=== PATIENT | male | born 1955 | race Caucasian/White ===

== ENCOUNTER 2021-12-27 08:28 | Outpatient (CLI) | payer MEDICARE, MEDICAID ==
[2021-12-27 10:08] LABS: ALANINE AMINOTRANSFERASE 36 U/L (12-78); ALBUMIN 3.6 G/DL (3.4-5.0); ALKALINE PHOSPHATASE 62 IU/L (46-116); ANION GAP 9 (8-16); ASPARTATE AMINO TRANSFERASE 16 U/L (10-37); BILIRUBIN,TOTAL 0.6 MG/DL (0.1-1.0); CHLORIDE 104 MMOL/L (99-107); CHOL/HDL RATIO 3.6 (0.00-4.99); CHOLESTEROL 175 MG/DL (0-200); CREATININE 0.98 MG/DL (0.60-1.10); GLUCOSE 155 MG/DL (70-104); HDL CHOLESTEROL 49 MG/DL (35-60); LDL CHOLESTEROL 83 MG/DL (50-100); POTASSIUM 4.4 MMOL/L (3.5-5.1); SODIUM 139 MMOL/L (135-145); TOTAL PROTEIN 7.2 G/DL (6.4-8.2); TRIGLYCERIDES 208 MG/DL (20-135); eGFR 76 ML/MIN
[2021-12-27 10:09] LABS: BLOOD UREA NITROGEN 20 MG/DL (7-18); BUN/CREATININE RATIO 20.4 (5.4-32.0)
== END 2021-12-27 23:59 | disposition home or self-care (01) ==
LOC: LAB 08:28
PROVIDERS: ATTEND Family Medicine
DX: I35.0 Nonrheumatic aortic (valve) stenosis (principal); E78.5 Hyperlipidemia, unspecified; I10 Essential (primary) hypertension; E11.9 Type 2 diabetes mellitus without complications; F20.9 Schizophrenia, unspecified; R60.0 Localized edema; R07.9 Chest pain, unspecified
CPT/HCPCS: 36415; 80053; 80061; 83880

== ENCOUNTER 2022-01-01 10:03 | Day surgery (SDC) | payer MEDICARE, MEDICAID ==
[2021-12-27 09:59] LABS: APTT 28 SECONDS (22-32)
[2021-12-27 10:29] LABS: BASOPHILS % (AUTO) 0.7 % (0-1); EOSINOPHILS # (AUTO) 0.2 X10'3 (0-0.9); EOSINOPHILS % (AUTO) 2.4 % (0-6); HEMATOCRIT 40.9 % (42.0-52.0); HEMOGLOBIN 14.2 g/dl (14.0-17.9); LYMPHOCYTES # (AUTO) 2.5 X10'3 (1.1-4.8); LYMPHOCYTES % (AUTO) 36.4 % (21-51); MEAN CORPUSCULAR HEMOGLOBIN 30.4 PG (27.0-31.0); MEAN CORPUSCULAR HGB CONC 34.8 g/dL (33.0-36.5); MEAN CORPUSCULAR VOLUME 87.3 FL (78-98); MEAN PLATELET VOLUME 7.7 FL (7.4-10.4); MONOCYTES # (AUTO) 0.4 X10'3 (0-0.9); MONOCYTES % (AUTO) 6.2 % (2-12); NEUTROPHILS # (AUTO) 3.7 X10'3 (1.8-7.7); NEUTROPHILS % (AUTO) 54.3 % (42-75); PLATELET COUNT 175 X10'3 (140-440); RED BLOOD COUNT 4.68 X10'6 (4.70-6.10); RED CELL DISTRIBUTION WIDTH 13.7 % (11.5-14.5); WHITE BLOOD COUNT 6.8 X10'3 (4.5-11.0)
[2022-01-01] VITALS (9 sets, daily range): BP systolic 126–148; BP diastolic 38–80
[~2022-01-01] VITALS: Ht 180.3 cm; Wt 87.5 kg
[2022-01-01] MEDS ORDERED: diphenhydrAMINE 25mg capsule PO PRN (10:20)
[2022-01-01] MEDS ORDERED: LORazepam 0.5 MG tablet PO PRN (10:20)
[2022-01-01] MEDS ORDERED: normal saline 1,000 ML IV SCH (10:20)
[2022-01-01] MEDS ORDERED: LIDOcaine/PRILOcaine 5gm cream TP ONE (10:45)
[2022-01-01 11:43] LABS: ALBUMIN 3.6 G/DL (3.4-5.0); ANION GAP 8 (8-16); BLOOD UREA NITROGEN 17 MG/DL (7-18); BUN/CREATININE RATIO 16.8 (5.4-32.0); CALCIUM 8.7 MG/DL (8.5-10.1); CHLORIDE 105 MMOL/L (99-107); CREATININE 1.01 MG/DL (0.60-1.10); GLUCOSE 195 MG/DL (70-104); POTASSIUM 4.2 MMOL/L (3.5-5.1); SODIUM 141 MMOL/L (135-145); eGFR 73 ML/MIN
[2022-01-01] MEDS ORDERED: nitroGLYCERIN-Tridil 50MG/D5W 250 ML IV ONE (11:50)
[2022-01-01] MEDS ORDERED: HEPARIN 25000 UNIT/250 ML IV ONE (11:50)
[2022-01-01] MEDS ORDERED: verapamil 2.5 mg/ml inj IV ONE (11:50)
[2022-01-01] MEDS ORDERED: heparin 1,000unit/ml 10ml vial 10 ML ONE (11:51)
[2022-01-01] MEDS ORDERED: iohexol 350MG/ML 100ml bottle IV ONE (11:51)
[2022-01-01] MEDS ORDERED: LIDOcaine 1% (10mg/ml) 2ml vial ONE (11:51)
[2022-01-01] MEDS ORDERED: fentaNYL/PF 50MCG/1 ML 2ML syringe ONE (11:51)
[2022-01-01] MEDS ORDERED: midazolam 1 mg/ML 2ml injection ONE (11:51)
[2022-01-01] MEDS ORDERED: LISI20TA28 PO (12:42)
[2022-01-01] MEDS ORDERED: CALC-1074 PO (12:42)
[2022-01-01] MEDS ORDERED: ESCI20TA39 PO (12:42)
[2022-01-01] MEDS ORDERED: INSU100I31 SUBCUT (12:42)
[2022-01-01] MEDS ORDERED: OMEP20CA16 PO (12:42)
[2022-01-01] MEDS ORDERED: TADA20TA70 PO (12:42)
[2022-01-01] MEDS ORDERED: ARIP20TA21 PO (12:42)
[2022-01-01] MEDS ORDERED: METF-438 PO (12:42)
[2022-01-01] MEDS ORDERED: ASPI-611 PO (12:42)
[2022-01-01] MEDS ORDERED: SIMV-45 PO (12:42)
[2022-01-01] MEDS ORDERED: LORA-268 PO (12:42)
[2022-01-01] MEDS ORDERED: DOCU250C18 PO (12:42)
[2022-01-01] MEDS ORDERED: GABA600T13 PO (12:42)
[2022-01-01 14:10] LABS: ISTAT HGB ART 12.6 g/dl (14.0-18.0); ISTAT Hct ART 37 %PCV (42-52); ISTAT O2 SATURATION ARTERIAL 90 % (95-98); ISTAT SOURCE ART
[2022-01-01] MEDS ORDERED: HYDROcodone/acetaminophen 10/325mg tab PO PRN (14:40)
[2022-01-01] MEDS ORDERED: HYDROcodone/acetaminophen 5mg/325mg tablet PO PRN (14:40)
[2022-01-01 16:04] LABS: ISTAT Hct MIX 39 %PCV (42-52); ISTAT O2 SATURATION MIX VENOUS 63 % (60-80); ISTAT SOURCE VEN
== END 2022-01-01 16:45 | disposition home or self-care (01) ==
LOC: SSTAY O 10:03
PROVIDERS: ATTEND Student in an Organized Health Care Education/Training Program
DX: I35.0 Nonrheumatic aortic (valve) stenosis (principal); F20.9 Schizophrenia, unspecified; E11.9 Type 2 diabetes mellitus without complications; I10 Essential (primary) hypertension; Z79.01 Long term (current) use of anticoagulants; Z79.899 Other long term (current) drug therapy; Z98.890 Other specified postprocedural states
CPT/HCPCS: 36415; 76937; 80048; 82803; 82948; 85014; 85025; 85610; 85730; 93005; 93456; 99152; 99153; A6258; C1769; C1894; J1644; J2250; J3010; J3490; J7030; Q0163; Q9967; A4620; A5120; A6402

== ENCOUNTER 2022-03-06 09:02 | Outpatient (CLI) | payer MEDICARE, MEDICAID ==
[~2022-03-06] VITALS: Ht 180.3 cm; Wt 88.5 kg
[~2022-03-06 09:02] MED LIST: ARIP20TA21 PO; ASPI-611 PO; CALC-1074 PO; DOCU250C18 PO; ESCI20TA39 PO; GABA600T13 PO; INSU100I31 SUBCUT; LISI20TA28 PO; LORA-268 PO; METF-438 PO; OMEP20CA16 PO; SIMV-45 PO; TADA20TA70 PO
[2022-03-06 09:38] LABS: BASOPHILS # (AUTO) 0.1 X10'3 (0-0.2); BASOPHILS % (AUTO) 1.2 % (0-1); EOSINOPHILS # (AUTO) 0.2 X10'3 (0-0.9); EOSINOPHILS % (AUTO) 2.6 % (0-6); HEMATOCRIT 42.5 % (42.0-52.0); HEMOGLOBIN 14.7 g/dl (14.0-17.9); LYMPHOCYTES # (AUTO) 2.4 X10'3 (1.1-4.8); LYMPHOCYTES % (AUTO) 37.5 % (21-51); MEAN CORPUSCULAR HEMOGLOBIN 30.5 PG (27.0-31.0); MEAN CORPUSCULAR HGB CONC 34.5 g/dL (33.0-36.5); MEAN CORPUSCULAR VOLUME 88.4 FL (78-98); MEAN PLATELET VOLUME 7.2 FL (7.4-10.4); MONOCYTES # (AUTO) 0.4 X10'3 (0-0.9); MONOCYTES % (AUTO) 5.7 % (2-12); NEUTROPHILS # (AUTO) 3.4 X10'3 (1.8-7.7); PLATELET COUNT 186 X10'3 (140-440); RED BLOOD COUNT 4.81 X10'6 (4.70-6.10); RED CELL DISTRIBUTION WIDTH 13.1 % (11.5-14.5); WHITE BLOOD COUNT 6.5 X10'3 (4.5-11.0)
[2022-03-06 09:48] LABS: APTT 26 SECONDS (22-32)
[2022-03-06 09:50] LABS: ALANINE AMINOTRANSFERASE 34 U/L (12-78); ALBUMIN 3.7 G/DL (3.4-5.0); ALKALINE PHOSPHATASE 68 IU/L (46-116); ANION GAP 9 (8-16); ASPARTATE AMINO TRANSFERASE 20 U/L (10-37); BILIRUBIN,TOTAL 0.5 MG/DL (0.1-1.0); BLOOD UREA NITROGEN 17 MG/DL (7-18); BUN/CREATININE RATIO 14.3 (5.4-32.0); CALCIUM 8.8 MG/DL (8.5-10.1); CHLORIDE 100 MMOL/L (99-107); CREATININE 1.19 MG/DL (0.60-1.10); GLUCOSE 249 MG/DL (70-104); POTASSIUM 4.4 MMOL/L (3.5-5.1); SODIUM 136 MMOL/L (135-145); TOTAL CARBON DIOXIDE 27.3 MMOL/L (24-32); TOTAL PROTEIN 7.4 G/DL (6.4-8.2); eGFR 61 ML/MIN
[2022-03-06] MEDS ORDERED: albuterol 2.5 MG/3 ML nebule NEB PRN (11:05)
[2022-03-06 11:08] LABS: ABG BASE EXCESS 1.1 mmol/L (-2.0-2.0); ABG HCO3 26.1 mmol/L (22.0-26.0); ABG OXYGEN SATURATION 96.6 % (94-97); ABG PCO2 (T) 42.7 mmHg (35.0-48.0); ABG PO2 (T) 90.5 mmHg (75.0-100.0); ALLEN'S TEST POSITIVE; FCOHb 0.7 % (0.0-3.9); FMetHb 0.2 % (0.0-1.5); FO2Hb 95.7 % (94-97); TOTAL HEMOGLOBIN 15.7 G/dl (14.0-18.0)
[2022-03-06] MEDS ORDERED: IODIXANOL 320 MG/ML INFUS..BTL 100ML IV ONE (11:46)
== END 2022-03-06 23:59 | disposition home or self-care (01) ==
LOC: RAD 09:02
PROVIDERS: ATTEND Internal Medicine Cardiovascular Disease
DX: I35.0 Nonrheumatic aortic (valve) stenosis (principal); K42.9 Umbilical hernia without obstruction or gangrene; K76.0 Fatty (change of) liver, not elsewhere classified; M43.06 Spondylolysis, lumbar region; Z79.899 Other long term (current) drug therapy; Z98.890 Other specified postprocedural states; Z20.822 Contact with and (suspected) exposure to COVID-19
CPT/HCPCS: 36415; 36600; 71046; 71275; 74174; 80053; 82803; 85018; 85025; 85610; 85730; 87811; 94010; 94727; 94729; J3490; Q9967